=== PATIENT | male | born 1995 | race Two or more races ===

== ENCOUNTER 2020-04-08 00:01 | Emergency (ER) | payer SELFPAY ==
[~2020-04-08] VITALS: Ht 170.2 cm; Wt 70.3 kg
[2020-04-08] MEDS ORDERED: Haloperidol 5mg/ml Inj ONE (00:06)
[2020-04-08] MEDS ORDERED: LORazepam Inj 2mg/ml 1ml ONE (00:06)
[2020-04-08] MEDS ORDERED: Haloperidol 5mg/ml Inj IM ONE (00:15)
[2020-04-08] MEDS ORDERED: LORazepam Inj 2mg/ml 1ml IM ONE (00:15)
--- NOTE | 2020-04-08 00:19 | NUR ---
ED Nurse Note: Pt was brought in by [employer] and [id number]. He is altered and repeating the same phrase axox0. Per EMS he was running in the street in traffic erratically. He ws placed on a 5150 hold by [employer] as a danger to himself. His vitals are stable on RA. He is physically and verbally abusive to staff, [employer], and fire. Pt's safety is maintained. Direct observation maintained. Addendum: 04/08/20 at 0025 by TDANCEY PT has a colostomy without a bag. no output at this time. Pt is diaphoretic, pupils are dialated. Addendum: 04/08/20 at 0311 by TDANCEY Correction pt was not placed on a 5150 hold at this time.
[2020-04-08 00:27] VITALS: BP 156/82
--- NOTE | 2020-04-08 00:34 | Emergency Room Report ---
History of Present Illness General Chief Complaint: Behavioral Complaint Source: Patient Present Illness HPI This is a gentleman who is approximately in his 20s. He presents with chief complaint of behavioral complaint. Patient was running in the street banging on car doors and acting irrationally. He was not cooperative and had to be restrained by police and EMS. Patient denies suicidal thoughts homicidal thought. He is not cooperative. He had a previous laparotomy with colostomy but he has no colostomy bag. Unable to get any other history because he is not cooperative. He refused to give his name. Allergies: Coded Allergies: UNABLE TO ASSESS (Unverified , 04/07/20) COVID-19 Screening COVID-19 risk:Contact w/high r: No Has patient experienced craig: No COVID-19 Testing performed LIVESTOCK COUNTER: No Patient History Past Medical History: see triage record, old chart reviewed Past Surgical History: other Family History: unable to obtain Social History: unable to obtain, other Immunizations: other Reviewed Nursing Documentation: PMH: Agreed; PSxH: Agreed Nursing Documentation-PMH Past Medical History: No History, Except For Review of Systems All Other Systems: limited - Unable because patient is not cooperative Physical Exam Vital Signs Date Time Temp Pulse Resp B/P (MAP) Pulse Ox O2 Delivery O2 Flow Rate FiO2 04/07/20 23:57 98.2 130 18 156/82 (106) 97 Room Air Vitals with high blood pressure Sp02 EP Interpretation: reviewed, normal General Appearance: alert/responsive, no apparent distress, non-toxic, other - Patient is screaming and not cooperative. Head: normocephalic, atraumatic Eyes: PERRL, EOMI ENT: oropharynx normal Neck: supple/symm/no masses Respiratory: effort normal, no rhonchi, no wheezing Cardiovascular: no murmur, gallop, rub Gastrointestinal: non-tender, no mass, non-distended, no rebound/guarding, normal bowel sounds Musculoskeletal: gait & station normal Neurologic: oriented x3, sensory intact, motor strength/tone normal Psychiatric: other - Agitated Skin: no rash, normal palpation Medical Decision Making Diagnostic Impression: Primary Impression: Psychosis Qualified Codes: F29 - Unspecified psychosis not due to a substance or known physiological condition Additional Impression: Methamphetamine abuse ER Course This patient presents with acute psychosis secondary to drug abuse. He may have an underlying psychiatric disorder also. Is not suicidal or homicidal. Patient was sedated for his agitation. He slept through the night. Will reassess in the morning. He denies suicidal thoughts or homicidal thoughts. He is not on a 5150. A new colostomy bag was placed. This patient is a chronic risk of self injury due to poor impulse control, limited coping skills, and judgment intermittently impaired by intoxication. I believe that the available clinical evidence to suggest that these characteristics derived primarily from personality disorder and are likely very stable over time. Hospitalization would likely attenuate risk of self-harm only during assisted period, without lasting risk reduction. Serious self-harm, while possible, would likely be inadvertent, and because of impulsivity, and foreseeable. For these reasons, I do not believe hospitalization would provide meaningful reduction in risk of self-harm. Last Vital Signs Date Time Temp Pulse Resp B/P (MAP) Pulse Ox O2 Delivery O2 Flow Rate FiO2 04/08/20 00:19 130 18 156/82 97 04/07/20 23:57 98.2 Room Air Status: improved Disposition: HOME, SELF-CARE Condition: Stable Referrals: NOT CHOSEN IPA/,REFERRING (PCP) Patient Instructions: Self-Destructive Behavior Additional Instructions: Stop using drugs. Follow-up with rehab and your doctor in 7 days. Return if worse. Alexandre Cunningham MD Apr 08, 2020 00:34
--- NOTE | 2020-04-08 01:09 | NUR ---
ED Nurse Note: Placed IV, sent labs, urne and covid swab, placed new colostomy bag,. Pt is resting comfortably with eyes closed, breathing is even and unlabored, pt is on monitor, no signs of distress noted.
[2020-04-08 01:13] LABS: BILIRUBIN, URINE NEGATIVE (NEGATIVE); GLUCOSE, URINE (UA) NEGATIVE (NEGATIVE); HEMATOCRIT 37.3 % (42.0-52.0); HEMOGLOBIN 11.4 G/DL (14.2-18.0); KETONES,URINE NEGATIVE (NEGATIVE); LEUKOCYTE ESTERASE ,URINE NEGATIVE (NEGATIVE); MEAN CORPUSCULAR VOLUME 76 FL (80-99); NITRITE,URINE NEGATIVE (NEGATIVE); PH,URINE 5 (4.5-8.0); PLATELET COUNT 345 K/UL (150-450); PROTEIN,URINE 2+ (NEGATIVE); RED BLOOD COUNT 4.93 M/UL (4.70-6.10); RED CELL DISTRIBUTION WIDTH 14.4 % (11.6-14.8); UROBILINOGEN,URINE NORMAL MG/DL (0.0-1.0); WHITE BLOOD COUNT 13.3 K/UL (4.8-10.8)
[2020-04-08 01:14] LABS: COLOR,URINE YELLOW
[2020-04-08 01:15] LABS: APPEARANCE,URINE SLIGHTLY CLOUDY
[2020-04-08 01:28] LABS: ALANINE AMINOTRANSFERASE 46 U/L (12-78); ALBUMIN 3.3 G/DL (3.4-5.0); ALKALINE PHOSPHATASE 123 U/L (46-116); ANION GAP 10 mmol/L (5-15); CALCIUM 9.1 MG/DL (8.5-10.1); CARBON DIOXIDE 25 MMOL/L (21-32); CHLORIDE 106 MMOL/L (98-107); CREATININE 1.3 MG/DL (0.55-1.30); POTASSIUM 3.5 MMOL/L (3.5-5.1); SODIUM 141 MMOL/L (136-145)
[2020-04-08 01:59] LABS: ASPARTATE AMINO TRANSFERASE 78 U/L (15-37); BILIRUBIN,TOTAL 1.9 MG/DL (0.2-1.0); BLOOD UREA NITROGEN 23 mg/dL (7-18)
[2020-04-08 02:01] LABS: BILIRUBIN,DIRECT 0.3 MG/DL (0.0-0.3)
[2020-04-08 02:18] VITALS: BP 110/68
--- NOTE | 2020-04-08 02:42 | NUR ---
ED Nurse Note: PT is resting comfortably, eye closed, vitals are stable on RA
[2020-04-08 04:08] VITALS: BP 118/76
--- NOTE | 2020-04-08 05:42 | NUR ---
ED Nurse Note: Pt is axox4, vitals are stable on RA. Pt is refusing to sign alex domingo MD ok'd to give sandwhich and juice. Colostomy bag is in place. Pt walks with a steady gait. He is refusing information for mental health services.
[2020-04-08 05:45] VITALS: BP 133/85
--- NOTE | 2020-04-08 05:45 | NUR ---
ER DISCHARGE NOTE: Patient is cleared to be discharged per ERMD, pt is aox4, on room air, with stable vital signs. pt was given dc and prescription instructions, pt was able to verbalize understanding, pt id band and iv site removed without complications. pt is able to ambulate with steady gait. pt took all belongings. Pt left in a private car
== END 2020-04-08 05:47 | disposition home or self-care (01) ==
LOC: EDBD 00:01 → EMR 00:10 → EDBD 00:10 → EMR 05:47
DX: F29 Unspecified psychosis not due to a substance or known physiological condition (principal); F15.10 Other stimulant abuse, uncomplicated; Z20.822 Contact with and (suspected) exposure to COVID-19
CPT/HCPCS: 36415; 80053; 80307; 81003; 82248; 85007; 85025; 96372; 99284; G0480; J1630; U0002